=== PATIENT | male | born 1960 | race Caucasian/White ===

== ENCOUNTER → 2018-02-03 08:11 | Outpatient (CLI) | payer OTHER, SELFPAY ==
[2018-02-03 08:54] LABS: Add Manual Diff / Slide Review NO; Basophils Percent Auto 0.8 % (0-2); Eosinophils Percent Auto 2.6 % (2-4); Hemoglobin 15.7 g/dL (13.5-17.5); Lymphocytes Percent Auto 27.4 % (25-40); Mean Corpuscular HGB Conc 34.1 % (30-36); Mean Corpuscular Hemoglobin 30.1 PG (26-34); Mean Corpuscular Volume 88.2 fL (80-100); Monocytes Percent Auto 7.8 % (3-14); Neutrophils Absolute Auto 4400 /uL (3000-5900); Neutrophils Percent Auto 61.4 % (50-75); Platelet Count 185 X10^3/uL (150-400); Red Blood Cell Count 5.21 X10^6/uL (4.5-5.9); Red Cell Distribution Width 14.3 % (11.6-14.8); White Blood Cell Count 7.2 X10^3/uL (4.5-11.0)
[2018-02-03 09:20] LABS: Alanine Aminotransferase 46 IU/L (21-72); Albumin Globulin Ratio 1.4 (1.0-2.8); Alkaline Phosphatase 86 U/L (38-126); Aspartate Aminotransferase 30 IU/L (17-59); Bilirubin Total 0.6 mg/dL (0.2-1.3); Blood Urea Nitrogen 12 mg/dL (9-20); Carbon Dioxide 26 mmol/L (22-32); Chloride 104 mmol/L (98-107); Cholesterol 156 mg/dL (140-199); Estimated Glomerular Filt Rate > 60.0 mL/min (>60); Globulin 2.8 g/dL (1.7-4.1); Glucose 100 mg/dL (70-100); HDL Cholesterol 42 mg/dL (40-60); HEMOLYSIS < 15 (0-50); LDL Cholesterol Calculated 97 mg/dL (<100); Sodium 139 mmol/L (137-145); Total Protein 6.8 g/dL (6.3-8.2); Triglycerides 87 mg/dL (35-150)
[2018-02-03 09:47] LABS: Thyroid Stimulating Hormone 3.94 uIU/mL (0.47-4.68)
[2018-02-03 09:49] LABS: Prostate Specific Antigen 0.621 ng/mL (0.10-4.00)
== END ==
PROVIDERS: PCP Family Medicine; Visit Provider Family Medicine
DX: I10 Essential (primary) hypertension (principal); E78.2 Mixed hyperlipidemia; R97.20 Elevated prostate specific antigen [PSA]
CPT/HCPCS: 36415; 80053; 80061; 84153; 84443; 85025

== ENCOUNTER → 2018-02-23 16:27 | Outpatient (CLI) | payer OTHER, SELFPAY ==
--- NOTE | 2018-02-23 16:30 | DI.RAD.S_ITS ---
PROCEDURE: XR CHEST 2V INDICATIONS: pain TECHNIQUE: 2 views of the chest were acquired. COMPARISON: [facility], , CHEST 2 VIEW, 07/15/2009, 10:42. FINDINGS: Surgical changes and devices: None. Lungs and pleura: No pleural effusions or pneumothorax. Lung volumes are low and there is medial bibasilar patchy atelectatic opacities. Bronchovascular crowding. Mediastinum: Mediastinal contours are normal. Heart size is normal. Bones and chest wall: No suspicious bony abnormalities. Soft tissues appear unremarkable. IMPRESSION: Low lung volumes demonstrating medial bibasilar patchy opacities likely related to compressive atelectasis versus aspiration. Recommend clinical correlation. No acute consolidation. Dictated by: Kamlesh Stephenson [facility] Interpreted: Tray Vazquez MD on 02/23/2018 at 17:01 Approved by: Tray Vazquez M.D. on 02/23/2018 at 17:18
--- NOTE | 2018-02-23 16:30 | DI.RAD.S_ITS ---
PROCEDURE: XR CERVICAL SPINE 2V OR 3V INDICATIONS: pain TECHNIQUE: 4 view(s) of the cervical spine were acquired. COMPARISON: None. FINDINGS: Bones: No fractures or dislocations to the T1 level. The lateral masses of C1 appear intact on the odontoid view. No suspicious bony lesions. Minimal early disc degeneration. Soft tissues: No prevertebral soft tissue swelling. IMPRESSION: Endplate osteophytes indicate very early mild mid and lower cervical spine disc degeneration. Dictated by: Kamlesh Stephenson [facility] Interpreted: Tray Vazquez MD on 02/23/2018 at 17:00 Approved by: Tray Vazquez M.D. on 02/23/2018 at 17:17
== END ==
PROVIDERS: PCP Family Medicine; Visit Provider Family Medicine
DX: M54.2 Cervicalgia (principal); R07.9 Chest pain, unspecified
CPT/HCPCS: 71046; 72040

== ENCOUNTER → 2018-07-17 14:10 | Outpatient (CLI) | payer OTHER, SELFPAY ==
[2018-07-17 15:22] LABS: RBC Urine None Seen (0-5/HPF)
[2018-07-17 15:28] LABS: Appearance Urine UA CLEAR; Bilirubin Urine UA NEGATIVE (NEGATIVE); Color Urine UA YELLOW; Glucose Urine UA NEGATIVE (Negative); Ketones Urine UA NEGATIVE (NEGATIVE); Leukocyte Esterase Urine UA NEGATIVE (NEGATIVE); Nitrite Urine UA NEGATIVE (Negative); Occult Blood Urine UA NEGATIVE (Negative); Protein Urine UA NEGATIVE (Negative); Specific Gravity Urine UA >=1.030 (1.000-1.035); pH Urine UA 5.5 (4.5-8.0)
[2018-07-17 15:36] LABS: Bacteria Urine Few (2-10); Culture Indicated Urine Cult Not Indicated; Mucus Urine 1+ (Negative); Squamous Epithelial Cell Urine 0-1 /HPF; WBC Urine 0-1/HPF (0-5/HPF)
== END ==
PROVIDERS: PCP Family Medicine; Visit Provider Registered Nurse
DX: R39.89 Other symptoms and signs involving the genitourinary system (principal)
CPT/HCPCS: 81001

== ENCOUNTER → 2018-07-17 14:20 | Outpatient (CLI) | payer OTHER, SELFPAY ==
[2018-07-17 14:55] LABS: Hemoglobin A1C% w Est Avg Glu 5.9 % (4.0-6.0)
[2018-07-17 15:34] LABS: Prostate Specific Antigen Scrn 0.805 ng/mL (0.1-4.0)
== END ==
PROVIDERS: PCP Family Medicine; Visit Provider Registered Nurse
DX: R97.20 Elevated prostate specific antigen [PSA] (principal); R35.8 Other polyuria; Z12.5 Encounter for screening for malignant neoplasm of prostate
CPT/HCPCS: 36415; 81001; 83036; G0103

== ENCOUNTER → 2018-08-27 15:36 | Outpatient (CLI) | payer OTHER, SELFPAY ==
--- NOTE | 2018-08-27 15:38 | DI.RAD.S_ITS ---
PROCEDURE: XR LUMBAR SPINE 2-3V INDICATIONS: pain TECHNIQUE: 2 views of the lumbar spine were acquired. COMPARISON: None. FINDINGS: Bones: No fracture or focal osseous destruction. Scattered endplate spurring and sclerosis. Lumbar disc spaces are grossly preserved. There is diffuse facet arthropathy. Multilevel lower thoracic spondylosis also noted Soft tissues: Overlying bowel gas pattern is normal. No suspicious soft tissue calcifications. IMPRESSION: Diffuse lumbar facet arthropathy. Lower thoracic spondylosis. Dictated by: Tray Vazquez M.D. on 08/27/2018 at 16:49 Approved by: Tray Vazquez M.D. on 08/27/2018 at 16:51
== END ==
PROVIDERS: PCP Family Medicine; Visit Provider Family Medicine
DX: M54.5 Low back pain (principal); M47.816 Spondylosis without myelopathy or radiculopathy, lumbar region; M47.814 Spondylosis without myelopathy or radiculopathy, thoracic region
CPT/HCPCS: 72100

== ENCOUNTER → 2019-02-02 09:57 | Outpatient (CLI) | payer OTHER, SELFPAY ==
[2019-02-02 11:59] LABS: Add Manual Diff / Slide Review NO; Basophils Absolute Auto 0 /uL (0-100); Basophils Percent Auto 0.6 % (0-2); Eosinophils Absolute Auto 200 /uL (0-450); Eosinophils Percent Auto 2.4 % (2-4); Hematocrit 45.1 % (41-53); Hemoglobin 15.1 g/dL (13.5-17.5); Lymphocytes Absolute Auto 1900 /uL (1100-4500); Mean Corpuscular HGB Conc 33.4 % (30-36); Mean Corpuscular Hemoglobin 29.2 PG (26-34); Mean Corpuscular Volume 87.4 fL (80-100); Monocytes Absolute Auto 600 /uL (0-900); Monocytes Percent Auto 8.3 % (3-14); Neutrophils Absolute Auto 4100 /uL (1500-7000); Neutrophils Percent Auto 60.7 % (50-75); Platelet Count 180 X10^3/uL (150-400); Red Blood Cell Count 5.16 X10^6/uL (4.5-5.9); Red Cell Distribution Width 14.5 % (11.6-14.8); White Blood Cell Count 6.8 X10^3/uL (4.5-11.0)
[2019-02-02 12:12] LABS: Alanine Aminotransferase 36 IU/L (21-72); Albumin 3.9 g/dL (3.5-5.0); Albumin Globulin Ratio 1.3 (1.0-2.8); Alkaline Phosphatase 86 U/L (38-126); Aspartate Aminotransferase 26 IU/L (17-59); Bilirubin Total 0.5 mg/dL (0.2-1.3); Blood Urea Nitrogen 16 mg/dL (9-20); Calcium 8.9 mg/dL (8.4-10.2); Carbon Dioxide 26 mmol/L (22-32); Chloride 104 mmol/L (98-107); Cholesterol 153 mg/dL (140-199); Estimated Glomerular Filt Rate > 60.0 mL/min (>60); Globulin 2.9 g/dL (1.7-4.1); Glucose 94 mg/dL (70-100); HDL Cholesterol 39 mg/dL (40-60); HEMOLYSIS < 15 (0-50); LDL Cholesterol Calculated 90 mg/dL (<100); Potassium 4.1 mmol/L (3.4-5.1); Sodium 138 mmol/L (137-145); Total Protein 6.8 g/dL (6.3-8.2); Triglycerides 120 mg/dL (35-150)
[2019-02-02 12:42] LABS: Prostate Specific Antigen Scrn 0.604 ng/mL (0.1-4.0); Thyroid Stimulating Hormone 2.79 uIU/mL (0.47-4.68)
== END ==
PROVIDERS: PCP Family Medicine; Visit Provider Family Medicine
DX: I10 Essential (primary) hypertension (principal)
CPT/HCPCS: 36415; 80053; 80061; 84443; 85025; G0103

== ENCOUNTER → 2019-02-15 11:32 | Outpatient (CLI) | payer OTHER, SELFPAY ==
--- NOTE | 2019-02-15 11:33 | DI.MRI.S_ITS ---
PROCEDURE: MR CERVICAL SPINE WO CON INDICATIONS: Neck pain TECHNIQUE: This is a limited study, as the patient terminated the examination before it could be completed. The following imaging sequences were obtained: T1 sagittal, T2 axial, sagittal STIR, and sagittal T2 weighted. COMPARISON: [facility], CR, XR CERVICAL SPINE 2V OR 3V, 02/23/2018, 16:08. FINDINGS: Image quality: This examination is limited by involuntary motion artifact. Alignment and Curvature: There is straightening of the normal cervical lordosis. No focal AP alignment abnormality is seen. Bone Marrow: Marrow demonstrates normal overall signal. Spinal Cord: Visualized spinal cord has normal size and signal. No cerebellar tonsillar herniation. Paraspinous Soft Tissues: No paravertebral masses. Prevertebral soft tissues are normal in thickness. C2-C3: No significant abnormality is seen. C3-C4: The disc height is well-preserved. Loss of disc signal is seen at this level. A mild degree of generalized disc osteophyte complex is seen. Eltm-gm-wdazqgae facet hypertrophy is seen. Moderate bilateral neural foraminal narrowing is seen, left worse than right. No significant central canal narrowing is seen. C4-C5: The disc height is well-preserved. Loss of disc signal is seen at this level. Mild to moderate disc osteophyte complex is seen. Nxfx-su-lwhozezq right-sided and moderate left-sided facet hypertrophy is seen. There is moderate left-sided and mild right-sided neural foraminal narrowing seen. C5-C6: Mild loss of disc height is seen. Loss of disc signal is seen. Mild to moderate disc osteophyte complex is seen. Eenz-mu-zwxbkbyx facet hypertrophy is seen. Moderate bilateral neural foraminal narrowing is seen. Mild central canal narrowing is seen. C6-C7: The disc height and disc signal are relatively well-preserved. Mild to moderate disc osteophyte complex is seen. There is moderate right-sided and mild left-sided facet hypertrophy seen. Tsxe-zw-atcowbvz right-sided and mild left-sided neural foraminal narrowing can be seen. Mild central canal narrowing is seen. C7-T1: No significant abnormality is seen. IMPRESSION: Multiple levels of cervical spine degenerative change are seen, which are most prominent inferiorly. Straightening of the normal cervical lordosis is seen, which is commonly observed in patients with muscular spasm. Limited study, which was terminated early by the patient. Dictated by: Chacorta Gasca M.D. on 02/15/2019 at 14:57 Approved by: Chacorta Gasca M.D. on 02/15/2019 at 15:00
== END ==
PROVIDERS: PCP Family Medicine; Visit Provider Family Medicine
DX: M54.2 Cervicalgia (principal); M47.812 Spondylosis without myelopathy or radiculopathy, cervical region
CPT/HCPCS: 72141

== ENCOUNTER → 2019-03-14 12:33 | Outpatient (CLI) | payer OTHER, SELFPAY | PROVIDERS: PCP Family Medicine; Visit Provider Family Medicine | DX: M54.2 Cervicalgia (principal); I10 Essential (primary) hypertension | CPT/HCPCS: 95885; 95886; 95911 ==

== ENCOUNTER 2019-07-24 01:23 | Emergency (ER) | payer OTHER, SELFPAY ==
[2019-07-24 01:35] VITALS: BP 142/82; PULSE 74; RESP 20; TEMP 36.9; O2SAT 98
[2019-07-24 01:58] LABS: Add Manual Diff / Slide Review NO; Basophils Absolute Auto 100 /uL (0-100); Basophils Percent Auto 0.8 % (0-2); Eosinophils Absolute Auto 200 /uL (0-450); Eosinophils Percent Auto 2.2 % (2-4); Hematocrit 45.8 % (41-53); Hemoglobin 15.5 g/dL (13.5-17.5); Lymphocytes Absolute Auto 2300 /uL (1100-4500); Lymphocytes Percent Auto 23.3 % (25-40); Mean Corpuscular HGB Conc 33.8 % (30-36); Mean Corpuscular Hemoglobin 29.3 PG (26-34); Mean Corpuscular Volume 86.9 fL (80-100); Monocytes Absolute Auto 700 /uL (0-900); Monocytes Percent Auto 7.6 % (3-14); Neutrophils Absolute Auto 6500 /uL (1500-7000); Neutrophils Percent Auto 66.1 % (50-75); Platelet Count 179 X10^3/uL (150-400); Red Blood Cell Count 5.27 X10^6/uL (4.5-5.9); Red Cell Distribution Width 14.3 % (11.6-14.8); White Blood Cell Count 9.8 X10^3/uL (4.5-11.0)
[2019-07-24 02:05] LABS: Alanine Aminotransferase 32 IU/L (<50); Albumin 4.1 g/dL (3.5-5.0); Albumin Globulin Ratio 1.4 (1.0-2.8); Alkaline Phosphatase 90 U/L (38-126); Aspartate Aminotransferase 24 IU/L (17-59); BUN Creatinine Ratio 21.1 (6-22); Bilirubin Total 0.5 mg/dL (0.2-1.3); Blood Urea Nitrogen 19 mg/dL (9-20); Carbon Dioxide 30 mmol/L (22-32); Chloride 100 mmol/L (98-107); Estimated Glomerular Filt Rate > 60.0 mL/min (>60); Glucose 106 mg/dL (70-100); HEMOLYSIS < 15 (0-50); Potassium 4.5 mmol/L (3.4-5.1); Sodium 135 mmol/L (137-145); Total Protein 7.1 g/dL (6.3-8.2)
[2019-07-24 02:16] LABS: Troponin I < 0.012 ng/mL (0.01-0.034)
--- NOTE | 2019-07-24 02:31 | ED_ITS ---
HPI - General Adult General Chief complaint: Hypertension Stated complaint: bp high dizziness fatigue left ear neck pressure Time Seen by Provider: 07/24/19 02:31 Source: patient Mode of arrival: Ambulatory Limitations: no limitations History of Present Illness HPI narrative: The patient has hypertension. He takes lisinopril and hydrochlorothiazide. He also has sleep apnea, he uses CPAP. He has had episodes of dizziness the last couple days. He has had no visual changes or chest pain. He checked his blood pressure night prior to arrival, his systolic blood pressure was 180. Symptoms have resolved since arrival. He has had recent nasal congestion. He did not use his CPAP unit last night. He has no ass ociated sore throat, cough or difficulty breathing. He has no chest discomfort. He has no GI symptoms. After arrival here, symptoms have improved. His systolic blood pressure is 130s. He is not diabetic, he has no history of cardiac or respiratory disease. He is a nonsmoker. Related Data Home Medications Medication Instructions Recorded Confirmed fexofenadine 180 mg tablet 180 mg PO DAILY 07/17/18 07/10/19 [employer] Dreamstation CPAP #1 ea 12/06/18 07/10/19 Previous Rx's Medication Instructions Recorded potassium chloride [K-Tab] 20 meq PO QDAYP PRN #30 tab 07/20/17 furosemide 40 mg tablet 40 mg PO QDAY PRN #30 tab 02/23/18 lisinopril 20 mg tablet 20 mg PO QDAY #90 tab 03/25/19 celecoxib 200 mg capsule 200 mg PO DAILY #30 cap MDD 200 mg 04/15/19 simvastatin 20 mg tablet 20 mg PO HS #90 tab 05/09/19 Allergies Allergy/AdvReac Type Severity Reaction Status Date / Time No Known Allergies Allergy Uncoded 04/15/19 16:14 Review of Systems Review of Systems ROS Unobtainable: All systems reviewed & are unremarkable except as noted in HPI and below Constitutional Constitutional: Denies chills, Denies fever(s), Denies lethargy and Denies weakness Eyes Eyes: Denies change in vision and Denies loss of vision ENT Ears, Nose, Mouth, and Throat: Denies hoarseness, Reports nasal discharge, Denies neck pain and Denies sore throat Cardiovascular Cardiovascular: Denies chest pain, Denies irregular heart rhythm, Denies lightheadedness, Denies palpitations and Denies orthopnea Respiratory Respiratory: Denies chest congestion, Denies cough, Denies hemoptysis and Denies wheezing Gastrointestinal Gastrointestinal: Denies abdominal pain, Denies diarrhea, Denies nausea and Denies vomiting Musculoskeletal Musculoskeletal: Denies back pain and Denies neck pain Integumentary/Breasts Skin/Breast: Denies pruritus, Denies erythema, Denies rash and Denies wounds Neurologic Neurologic: Denies confusion, Denies loss of vision and Denies weakness Psychiatric Psychiatric: Denies anxiety, Denies confusion and Denies depression Endocrine Endocrine: Denies palpitations Allergic/Immunologic Allergic/Immunologic: Denies wheezing Patient History Medical History Ankle pain (Chronic ~2013) Cervicalgia (Chronic) Chicken pox (Resolved) Facet arthropathy, cervical (Chronic) Foraminal stenosis of cervical region (Chronic) Headache (Chronic ~1991) Hearing loss (Chronic ~1991) Hypertension (Chronic ~2009) Insomnia (Chronic) Measles (Resolved) Morbid obesity with body mass index of 40.0-49.9 (Chronic) Mumps (Resolved) Sleep apnea (Chronic ~2011) Snoring (Inactive) Vision disorder (Chronic) Surgical History Anesthesia (Resolved) Status post appendectomy Family History Father No problems noted. Social History Smoking Status: Never smoker alcohol intake: current (occasionally) substance use type: does not use Smoking Status: Never smoker Exam Initial Vital Signs Initial Vital Signs: Vital Signs Temperature 98.5 F 07/24/19 01:35 Pulse Rate 74 07/24/19 01:35 Respiratory Rate 20 07/24/19 01:35 Blood Pressure 142/82 H 07/24/19 01:35 Pulse Oximetry 98 07/24/19 01:35 Const General: cooperative and well developed Nutritional Appearance: well nourished [facility] Head: normocephalic and atraumatic Nose: nasal discharge Face and sinus: sinuses nontender and No dry mucous membranes Mouth: oral mucosae normal and moist mucous membranes Teeth and gingiva: dentition normal Throat: tonsils normal and uvula midline Eyes General: appearance normal, both eyes and all related structures Eyelids: eyelids normal Conjunctivae: conjunctivae normal Sclera: sclerae normal Pupils: PERRL EOM: EOM intact bilaterally Neck Neck: No JVD Resp Effort & Inspection: normal respiratory effort and able to speak in complete sentences Auscultation: clear to auscultation bilaterally, no rales, no rhonchi and no wheezes Cardio Rate: regular rate Rhythm: regular rhythm Heart Sounds: S1 normal, S2 normal, no click, no gallops, no murmurs and no rubs Pulses: normal peripheral pulses GI Inspection: obesity Palpation: soft, no hepatosplenomegaly and No tender Auscultation: normal bowel sounds Back/Spine/Pelvis Back: normal to inspection Skin General: no rashes or lesions noted Neuro General: alert, awake, oriented x3 and no focal motor deficits Extrem Other: 3+ bilateral lower extremity edema. Course Course Course Narrative: The patient's blood pressures been 130s systolic since arrival. He has no chest pain or dyspnea. The dizziness has resolved. His evaluation is benign here in the ER. Orders Ordered: ED Orders 07/24/19 01:37 EKG-12 Lead Stat 07/24/19 01:48 Complete Blood Count AUTO DIFF Stat Comprehensive Metabolic Panel Stat Troponin I Stat Vital Signs Vital signs: Vital Signs - 8 hr 07/24/19 01:35 07/24/19 02:46 07/24/19 03:52 Temperature 98.5 F Pulse Rate 74 67 18 L Respiratory Rate 20 10 L 14 Blood Pressure 142/82 H Blood Pressure [Left Arm] 141/80 H 132/79 Pulse Oximetry 98 98 98 Medical Decision Making Lab Data Result diagrams: 07/24/19 01:48 07/24/19 01:48 Labs: Lab Results 07/24/19 07/24/19 Range/Units 01:48 01:48 WBC 9.8 (4.5-11.0) X10^3/uL RBC 5.27 (4.5-5.9) X10^6/uL Hgb 15.5 (13.5-17.5) g/dL Hct 45.8 (41-53) % MCV 86.9 (80-100) fL MCH 29.3 (26-34) PG MCHC 33.8 (30-36) % RDW 14.3 (11.6-14.8) % Plt Count 179 (150-400) X10^3/uL Neut % (Auto) 66.1 (50-75) % Lymph % (Auto) 23.3 L (25-40) % [place] % (Auto) 7.6 (3-14) % Eos % (Auto) 2.2 (2-4) % Baso % (Auto) 0.8 (0-2) % Neut # (Auto) 6500 (4461-8261) /uL Lymph # (Auto) 2300 (3818-9991) /uL [place] # (Auto) 700 (0-900) /uL Eos # (Auto) 200 (0-450) /uL Baso # (Auto) 100 (0-100) /uL Sodium 135 L (137-145) mmol/L Potassium 4.5 (3.4-5.1) mmol/L Chloride 100 (98-107) mmol/L Carbon Dioxide 30 (22-32) mmol/L BUN 19 (9-20) mg/dL Creatinine 0.90 (0.66-1.25) mg/dL Estimated GFR > 60.0 (>60) mL/min BUN/Creatinine Ratio 21.1 (6-22) Glucose 106 H (70-100) mg/dL Calcium 9.0 (8.4-10.2) mg/dL Total Bilirubin 0.5 (0.2-1.3) mg/dL AST 24 (17-59) IU/L ALT 32 (<50) IU/L Alkaline Phosphatase 90 (38-126) U/L Troponin I < 0.012 (0.01-0.034) ng/mL Total Protein 7.1 (6.3-8.2) g/dL Albumin 4.1 (3.5-5.0) g/dL Globulin 3.0 (1.7-4.1) g/dL Albumin/Globulin Ratio 1.4 (1.0-2.8) Imaging Data Chest x-ray: My Impression: Normal ECG Data Attestation: I personally reviewed and interpreted this ECG as follows: (Normal sinus rhythm, rate 73 beats per minute. Normal intervals. No ectopy. No acute ST T wave changes.) Discharge Plan Departure Patient Disposition: Home Clinical Impression: Hypertension Qualifiers: Hypertension type: essential hypertension Qualified Code(s): I10 - Essential (primary) hypertension Instructions: DI for High Blood Pressure Activity Restrictions/Additional Instructions: Continue your current blood pressure medications. Keep a daily record of your blood pressure readings. Try to be sure you use your CPAP every time you lay down. Follow-up with your doctor about your blood pressure monitoring. Return the ER if he develops chest pain, difficulty breathing, headache, confusion, dizziness or visual changes associated with high blood pressure. Prescriptions: No Action potassium chloride [K-Tab] 20 MEQ tablet extended release 20 meq PO QDAYP PRNQty: 30 RF: 0 lisinopril 20 mg tablet 20 mg PO QDAY Qty: 90 RF: 3 simvastatin 20 mg tablet 20 mg PO HS Qty: 90 RF: 3 furosemide 40 mg tablet 40 mg PO QDAY PRN (Reason: edema) Qty: 30 RF: 11 fexofenadine [Estefani Allergy] 180 mg tablet 180 mg PO DAILY RF: 0 celecoxib [Celebrex] 200 mg capsule 200 mg PO DAILY MDD 200 mg Qty: 30 RF: 5 (DME) [employer] Dreamstation CPAP Qty: 1 RF: 0 Referrals: Deuce Collins MD [Primary Care Provider] -
[2019-07-24 02:46] VITALS: BP 141/80; PULSE 67; RESP 10; O2SAT 98
[2019-07-24 03:52] VITALS: BP 132/79; PULSE 18; RESP 14; O2SAT 98
== END 2019-07-24 04:02 | disposition home or self-care (01) ==
PROVIDERS: Emergency Provider Emergency Medicine; PCP Family Medicine
DX: I10 Essential (primary) hypertension (principal)
CPT/HCPCS: 36415; 80053; 84484; 85025; 93005; 99283; 99284

== ENCOUNTER → 2020-01-02 07:08 | Outpatient (CLI) | payer OTHER, SELFPAY | PROVIDERS: PCP Family Medicine; Referring Provider Family Medicine; Visit Provider Family Medicine | DX: M54.5 Low back pain (principal); Z53.20 Procedure and treatment not carried out because of patient's decision for unspecified reasons ==

== ENCOUNTER 2020-03-17 13:54 | Emergency (ER) | payer OTHER, SELFPAY ==
[2020-03-17 14:00] VITALS: BP 141/77; PULSE 82; RESP 18; TEMP 36.7; O2SAT 96
--- NOTE | 2020-03-17 14:17 | ED.MALEGU ---
HPI - Male Genitourinary <LINDSEY Escobar - Last Filed: 03/17/20 21:07> General Chief complaint: Urogenital-Male Stated complaint: Urinating blood Time Seen by Provider: 03/17/20 13:57 Source: patient Mode of arrival: Ambulatory Limitations: no limitations History of Present Illness HPI Narrative: 60yo male with a history of high cholesterol, hypertension, and obesity, presents to the ED complaining of 1 episode of gross hematuria today. Patient states he urinated this morning and noticed later when he had a bowel movement he had a blood stain in his underwear. He then went to urinate and noticed significant bright red blood in urine. Patient states occasionally he has some burning post urination. Denies any prostate problems. Denies any pain at this time, no abdominal pain, no fevers, chills, nausea, vomiting, diarrhea, or any other concerns. Denies taking blood thinners. Related Data Home Medications Medication Instructions Recorded Confirmed RespirCheck-Caps Dreamstation CPAP #1 ea 12/06/18 01/14/20 cyclosporine 0.05 % eye drops in a EYE-BOTH .QD each 12/02/19 01/14/20 dropperette Previous Rx's Medication Instructions Recorded celecoxib 200 mg capsule 200 mg PO DAILY #30 cap MDD 200 mg 08/09/19 fexofenadine 180 mg tablet 180 mg PO DAILY #90 tab 08/12/19 lisinopril 20 mg tablet 20 mg PO BID #180 tab 08/12/19 potassium chloride 20 mEq 20 meq PO QDAYP PRN #30 tab 08/12/19 tablet,extended release simvastatin 20 mg tablet 20 mg PO HS #90 tab 08/12/19 furosemide 40 mg tablet 40 mg PO QDAY PRN #90 tab 11/01/19 meloxicam 15 mg tablet 15 mg PO DAILY #60 tab 12/02/19 hydrocodone 5 mg-acetaminophen 325 1 tab PO Q6H PRN #30 tab 12/18/19 mg tablet Allergies Allergy/AdvReac Type Severity Reaction Status Date / Time No Known Drug Allergies Allergy Verified 03/17/20 14:09 Review of Systems <LINDSEY Escobar - Last Filed: 03/17/20 21:07> Review of Systems Narrative: REVIEW OF SYSTEMS: GENERAL: Denies fever, chills, malaise, or wt. loss. HENT: No head trauma, sore throat, or dysphagia. EYES: No loss of vision, double vision, eye pain, or irritation. CARDIOVASCULAR: No chest pain, palpitations, or orthopnea. RESPIRATORY: No shortness of breath or cough. GASTROINTESTINAL: Denies abdominal pain. GENITOURINARY: No flank pain. Reports hematuria, see HPI. MUSCULOSKELETAL: No pain, weakness, or trauma. INTEGUMENTARY: No rash, lesions, or pruritus. NEURO: No numbness, tingling, memory loss, confusion, or headaches. PSYCH: No behavior or mood changes. Patient History <LINDSEY Escobar - Last Filed: 03/17/20 21:07> Medical History Ankle pain (Chronic ~2013) Cervicalgia (Chronic) Chicken pox (Resolved) Facet arthropathy, cervical (Chronic) Foraminal stenosis of cervical region (Chronic) Headache (Chronic ~1991) Hearing loss (Chronic ~1991) Hypertension (Chronic ~2009) Insomnia (Chronic) Measles (Resolved) Morbid obesity with body mass index of 40.0-49.9 (Chronic) Mumps (Resolved) Sleep apnea (Chronic ~2011) Snoring (Inactive) Vision disorder (Chronic) Surgical History Anesthesia (Resolved) Status post appendectomy Family History Father No problems noted. Social History Smoking Status: Never smoker alcohol intake: current (occasionally) substance use type: does not use Smoking Status: Never smoker alcohol intake frequency: 0-2 drinks per day Substance Use Type: does not use Exam <LINDSEY Escobar - Last Filed: 03/17/20 21:07> Initial Vital Signs Initial Vital Signs: Vital Signs Temperature 98.1 F 03/17/20 14:00 Pulse Rate 82 03/17/20 14:00 Respiratory Rate 18 03/17/20 14:00 Blood Pressure 141/77 H 03/17/20 14:00 Pulse Oximetry 96 03/17/20 14:00 PHYSICAL EXAMINATION: GENERAL: Well groomed, alert, and cooperative. Answers questions promptly and appropriately. Vital signs noted. HENT: Normocephalic, atraumatic. Hearing intact. Oral mucosa is pink and moist. EYES: Conjunctiva pink, sclera white, no periorbital swelling. CARDIOVASCULAR: S1 and S2 sounds normal. Regular rate and rhythm, no murmurs, clicks, or bruits. No pedal edema. RESPIRATORY: Normal respiratory rate, trachea midline, airway patent. No stridor, nasal flaring or accessory muscle use. Lungs are clear in all gruber without wheeze, rhonchi, or crackles. GASTROINTESTINAL: Bowel sounds normoactive. Abdomen is soft and non-tender. No organomegaly, no palpable masses. GENITALURINARY: No flank tenderness. MUSCULOSKELETAL: Normal gait and coordination. Equal tone and mass bilaterally. EXTREMITIES: CMS intact, no pedal edema. SKIN: Warm, dry, soft, appropriate color for ethnicity. No lesions, rashes, or wounds to visualized areas. NEURO: Alert and Oriented X 3. Good coordination. No ataxia, or sensory deficits, or cognitive issues. PSYCH: Appropriate affect and mood. <Arnoldo David MD - Last Filed: 04/14/20 03:09> Initial Vital Signs Initial Vital Signs: Vital Signs Temperature 98.1 F 03/17/20 14:00 Pulse Rate 82 03/17/20 14:00 Respiratory Rate 18 03/17/20 14:00 Blood Pressure 141/77 H 03/17/20 14:00 Pulse Oximetry 96 03/17/20 14:00 Course <LINDSEY Escobar - Last Filed: 03/17/20 21:07> Orders Ordered: ED Orders 03/17/20 14:20 Urine Culture Stat Urine Microscopic Stat 03/17/20 14:30 Complete Blood Count AUTO DIFF Stat Comprehensive Metabolic Panel Stat Partial Thromboplastin Time Stat Prothrombin Time INR Stat Reevaluation(s) Reevaluation #1: Discussed test, test results, and plan of care with Dr. David. Vital Signs Vital signs: Vital Signs - 8 hr 03/17/20 14:00 Temperature 98.1 F Pulse Rate 82 Respiratory Rate 18 Blood Pressure 141/77 H Pulse Oximetry 96 <Arnoldo David MD - Last Filed: 04/14/20 03:09> Orders Ordered: ED Orders 03/17/20 14:20 Urine Culture Stat Urine Microscopic Stat 03/17/20 14:30 Complete Blood Count AUTO DIFF Stat Comprehensive Metabolic Panel Stat Partial Thromboplastin Time Stat Prothrombin Time INR Stat Vital Signs Vital signs: Vital Signs - 8 hr 03/17/20 14:00 Temperature 98.1 F Pulse Rate 82 Respiratory Rate 18 Blood Pressure 141/77 H Pulse Oximetry 96 MDM - Male Genitourinary <LINDSEY Escobar - Last Filed: 03/17/20 21:07> Medical Records Attestation: I reviewed the patient's medical records. Lab Data Attestation: I reviewed the patient's lab results. Result diagrams: 03/17/20 14:30 03/17/20 14:30 Labs: Lab Results 03/17/20 03/17/20 03/17/20 Range/Units 14:20 14:30 14:30 WBC 8.5 (4.5-11.0) X10^3/uL RBC 5.14 (4.5-5.9) X10^6/uL Hgb 15.3 (13.5-17.5) g/dL Hct 45.6 (41-53) % MCV 88.7 (80-100) fL MCH 29.7 (26-34) PG MCHC 33.5 (30-36) % RDW 14.1 (11.6-14.8) % Plt Count 206 (150-400) X10^3/uL Neut % (Auto) 61.6 (50-75) % Lymph % (Auto) 25.8 (25-40) % [place] % (Auto) 8.6 (3-14) % Eos % (Auto) 3.1 (2-4) % Baso % (Auto) 0.9 (0-2) % Neut # (Auto) 5200 (6659-0334) /uL Lymph # (Auto) 2200 (1075-1643) /uL [place] # (Auto) 700 (0-900) /uL Eos # (Auto) 300 (0-450) /uL Baso # (Auto) 100 (0-100) /uL PT 11.9 (10.1-12.7) SECONDS INR 1.0 (0.9-1.3) APTT 39 H (26.4-36.2) SECONDS Sodium (137-145) mmol/L Potassium (3.4-5.1) mmol/L Chloride (98-107) mmol/L Carbon Dioxide (22-32) mmol/L BUN (9-20) mg/dL Creatinine (0.66-1.25) mg/dL Estimated GFR (>60) mL/min BUN/Creatinine Ratio (6-22) Glucose (70-100) mg/dL Calcium (8.4-10.2) mg/dL Total Bilirubin (0.2-1.3) mg/dL AST (17-59) IU/L ALT (<50) IU/L Alkaline Phosphatase (38-126) U/L Total Protein (6.3-8.2) g/dL Albumin (3.5-5.0) g/dL Globulin (1.7-4.1) g/dL Albumin/Globulin Ratio (1.0-2.8) Urine RBC 30-100/hpf H (0-5/HPF) Urine WBC 1-5/hpf (0-5/HPF) Ur Squamous Epith Cells 0-1 /hpf (0-5/HPF) Amorphous Sediment 1+ Urine Bacteria Occasional (0-1) (None) Ur Culture Indicated? Specimen cultured 03/17/20 Range/Units 14:30 WBC (4.5-11.0) X10^3/uL RBC (4.5-5.9) X10^6/uL Hgb (13.5-17.5) g/dL Hct (41-53) % MCV (80-100) fL MCH (26-34) PG MCHC (30-36) % RDW (11.6-14.8) % Plt Count (150-400) X10^3/uL Neut % (Auto) (50-75) % Lymph % (Auto) (25-40) % [place] % (Auto) (3-14) % Eos % (Auto) (2-4) % Baso % (Auto) (0-2) % Neut # (Auto) (9638-4012) /uL Lymph # (Auto) (8533-2956) /uL [place] # (Auto) (0-900) /uL Eos # (Auto) (0-450) /uL Baso # (Auto) (0-100) /uL PT (10.1-12.7) SECONDS INR (0.9-1.3) APTT (26.4-36.2) SECONDS Sodium 137 (137-145) mmol/L Potassium 4.0 (3.4-5.1) mmol/L Chloride 102 (98-107) mmol/L Carbon Dioxide 29 (22-32) mmol/L BUN 15 (9-20) mg/dL Creatinine 0.91 (0.66-1.25) mg/dL Estimated GFR > 60.0 (>60) mL/min BUN/Creatinine Ratio 16.5 (6-22) Glucose 102 H (70-100) mg/dL Calcium 8.7 (8.4-10.2) mg/dL Total Bilirubin 0.5 (0.2-1.3) mg/dL AST 32 (17-59) IU/L ALT 33 (<50) IU/L Alkaline Phosphatase 89 (38-126) U/L Total Protein 7.0 (6.3-8.2) g/dL Albumin 4.2 (3.5-5.0) g/dL Globulin 2.8 (1.7-4.1) g/dL Albumin/Globulin Ratio 1.5 (1.0-2.8) Urine RBC (0-5/HPF) Urine WBC (0-5/HPF) Ur Squamous Epith Cells (0-5/HPF) Amorphous Sediment Urine Bacteria (None) Ur Culture Indicated? Urine Dip Bedside Urine Glucose Negative Bedside Urine Bilirubin - Negative Bedside Urine Ketone - Negative Urine Specific [place] 1.020 Bedside Urine Occult Blood +++ Bedside Urine pH 5.5 Bedside Urine Protein - Negative Bedside Urine Urobilinogen - Negative Bedside Urine Nitrite - Negative Bedside Urine Leukocytes +/- 15 Esterase MDM Narrative Medical decision making narrative: History and examination reveals 60-year-old male with an episode of gross hematuria, microcytic hematuria seen on urinalysis. No signs of acute kidney injury, no difficulty with urination or bladder retention. No concerns for clotting disorder. Abdominal assessment benign, no imaging indicated at this time. No signs of infection in urine, afebrile, non tachycardic. Patient was referred to Urology for follow-up. Return precautions given for new or worsening symptoms. Patient agreed to plan of care verbalized understanding. <Arnoldo David MD - Last Filed: 04/14/20 03:09> Lab Data Labs: Lab Results 03/17/20 03/17/20 03/17/20 Range/Units 14:20 14:30 14:30 WBC 8.5 (4.5-11.0) X10^3/uL RBC 5.14 (4.5-5.9) X10^6/uL Hgb 15.3 (13.5-17.5) g/dL Hct 45.6 (41-53) % MCV 88.7 (80-100) fL MCH 29.7 (26-34) PG MCHC 33.5 (30-36) % RDW 14.1 (11.6-14.8) % Plt Count 206 (150-400) X10^3/uL Neut % (Auto) 61.6 (50-75) % Lymph % (Auto) 25.8 (25-40) % [place] % (Auto) 8.6 (3-14) % Eos % (Auto) 3.1 (2-4) % Baso % (Auto) 0.9 (0-2) % Neut # (Auto) 5200 (3720-9776) /uL Lymph # (Auto) 2200 (4850-1048) /uL [place] # (Auto) 700 (0-900) /uL Eos # (Auto) 300 (0-450) /uL Baso # (Auto) 100 (0-100) /uL PT 11.9 (10.1-12.7) SECONDS INR 1.0 (0.9-1.3) APTT 39 H (26.4-36.2) SECONDS Sodium (137-145) mmol/L Potassium (3.4-5.1) mmol/L Chloride (98-107) mmol/L Carbon Dioxide (22-32) mmol/L BUN (9-20) mg/dL Creatinine (0.66-1.25) mg/dL Estimated GFR (>60) mL/min BUN/Creatinine Ratio (6-22) Glucose (70-100) mg/dL Calcium (8.4-10.2) mg/dL Total Bilirubin (0.2-1.3) mg/dL AST (17-59) IU/L ALT (<50) IU/L Alkaline Phosphatase (38-126) U/L Total Protein (6.3-8.2) g/dL Albumin (3.5-5.0) g/dL Globulin (1.7-4.1) g/dL Albumin/Globulin Ratio (1.0-2.8) Urine RBC 30-100/hpf H (0-5/HPF) Urine WBC 1-5/hpf (0-5/HPF) Ur Squamous Epith Cells 0-1 /hpf (0-5/HPF) Amorphous Sediment 1+ Urine Bacteria Occasional (0-1) (None) Ur Culture Indicated? Specimen cultured 03/17/20 Range/Units 14:30 WBC (4.5-11.0) X10^3/uL RBC (4.5-5.9) X10^6/uL Hgb (13.5-17.5) g/dL Hct (41-53) % MCV (80-100) fL MCH (26-34) PG MCHC (30-36) % RDW (11.6-14.8) % Plt Count (150-400) X10^3/uL Neut % (Auto) (50-75) % Lymph % (Auto) (25-40) % [place] % (Auto) (3-14) % Eos % (Auto) (2-4) % Baso % (Auto) (0-2) % Neut # (Auto) (0881-1505) /uL Lymph # (Auto) (2981-2557) /uL [place] # (Auto) (0-900) /uL Eos # (Auto) (0-450) /uL Baso # (Auto) (0-100) /uL PT (10.1-12.7) SECONDS INR (0.9-1.3) APTT (26.4-36.2) SECONDS Sodium 137 (137-145) mmol/L Potassium 4.0 (3.4-5.1) mmol/L Chloride 102 (98-107) mmol/L Carbon Dioxide 29 (22-32) mmol/L BUN 15 (9-20) mg/dL Creatinine 0.91 (0.66-1.25) mg/dL Estimated GFR > 60.0 (>60) mL/min BUN/Creatinine Ratio 16.5 (6-22) Glucose 102 H (70-100) mg/dL Calcium 8.7 (8.4-10.2) mg/dL Total Bilirubin 0.5 (0.2-1.3) mg/dL AST 32 (17-59) IU/L ALT 33 (<50) IU/L Alkaline Phosphatase 89 (38-126) U/L Total Protein 7.0 (6.3-8.2) g/dL Albumin 4.2 (3.5-5.0) g/dL Globulin 2.8 (1.7-4.1) g/dL Albumin/Globulin Ratio 1.5 (1.0-2.8) Urine RBC (0-5/HPF) Urine WBC (0-5/HPF) Ur Squamous Epith Cells (0-5/HPF) Amorphous Sediment Urine Bacteria (None) Ur Culture Indicated? Urine Dip Bedside Urine Glucose Negative Bedside Urine Bilirubin - Negative Bedside Urine Ketone - Negative Urine Specific [place] 1.020 Bedside Urine Occult Blood +++ Bedside Urine pH 5.5 Bedside Urine Protein - Negative Bedside Urine Urobilinogen - Negative Bedside Urine Nitrite - Negative Bedside Urine Leukocytes +/- 15 Esterase Discharge Plan Departure Patient Disposition: Home Clinical Impression: Hematuria Discharge Date/Time: 03/17/20 15:40 Instructions: DI for Hematuria Activity Restrictions/Additional Instructions: Thank you for entrusting me with your care today. As discussed, your urinalysis shows blood in your urine. Your laboratory work is non-remarkable, your kidney function and red blood cell count is normal. I have referred you for a follow-up with urology for further testing and evaluation. Please call them today or tomorrow to schedule an appointment. Return emergency department for any new or worsening symptoms such as severe pain, dizziness, syncope, high fevers, inability to urinate, uncontrollable bleeding, or any other concerns. Prescriptions: No Action fexofenadine [Estefani Allergy] 180 mg tablet 180 mg PO DAILY Qty: 90 RF: 3 lisinopril 20 mg tablet 20 mg PO BID Qty: 180 RF: 3 potassium chloride [K-Tab] 20 mEq tablet extended release 20 meq PO QDAYP PRN (Reason: edema) Qty: 30 RF: 5 simvastatin 20 mg tablet 20 mg PO HS Qty: 90 RF: 3 furosemide 40 mg tablet 40 mg PO QDAY PRN (Reason: edema) Qty: 90 RF: 1 Restasis 0.05 % dropperette EYE-BOTH .QD RF: 0 meloxicam 15 mg tablet 15 mg PO DAILY Qty: 60 RF: 5 celecoxib [Celebrex] 200 mg capsule 200 mg PO DAILY MDD 200 mg Qty: 30 RF: 5 Hold Instructions: Home Medication placed on hold at Doctor's office hydrocodone-acetaminophen 5-325 mg tablet 1 tab PO Q6H PRN (Reason: pain) Qty: 30 RF: 0 (DME) Respironics Dreamstation CPAP Qty: 1 RF: 0 Referrals: Deuce Collins MD [Primary Care Provider] - Dina Del Toro MD [Physician] - (Hematuria )
[2020-03-17 14:38] LABS: Add Manual Diff / Slide Review NO; Basophils Absolute Auto 100 /uL (0-100); Basophils Percent Auto 0.9 % (0-2); Eosinophils Absolute Auto 300 /uL (0-450); Eosinophils Percent Auto 3.1 % (2-4); Hematocrit 45.6 % (41-53); Hemoglobin 15.3 g/dL (13.5-17.5); Lymphocytes Absolute Auto 2200 /uL (1100-4500); Lymphocytes Percent Auto 25.8 % (25-40); Mean Corpuscular HGB Conc 33.5 % (30-36); Mean Corpuscular Hemoglobin 29.7 PG (26-34); Mean Corpuscular Volume 88.7 fL (80-100); Monocytes Absolute Auto 700 /uL (0-900); Monocytes Percent Auto 8.6 % (3-14); Neutrophils Absolute Auto 5200 /uL (1500-7000); Neutrophils Percent Auto 61.6 % (50-75); Platelet Count 206 X10^3/uL (150-400); Red Blood Cell Count 5.14 X10^6/uL (4.5-5.9); Red Cell Distribution Width 14.1 % (11.6-14.8); White Blood Cell Count 8.5 X10^3/uL (4.5-11.0)
[2020-03-17 14:43] LABS: Amorphous Sediment Urine 1+; RBC Urine 30-100/HPF (0-5/HPF); Squamous Epithelial Cell Urine 0-1 /HPF (0-5/HPF); WBC Urine 1-5/HPF (0-5/HPF)
[2020-03-17 14:44] LABS: Bacteria Urine Occasional (0-1); Culture Indicated Urine Specimen Cultured
[2020-03-17 14:45] LABS: Prothrombin Time 11.9 SECONDS (10.1-12.7)
[2020-03-17 14:47] LABS: PTT Partial Thromboplastin Tim 39 SECONDS (26.4-36.2)
--- NOTE | 2020-03-17 14:49 | PC.NURSE ---
Patient states he noticed blood in underwear when he went to urinated, then produced fair amount of blood in urine. Patient reports small amount of left flank pain. Has known buldging disc. Patient states he felt like something was blocked earlier when he started urinating but once flow started he felt a relief.
[2020-03-17 14:50] LABS: Alanine Aminotransferase 33 IU/L (<50); Albumin 4.2 g/dL (3.5-5.0); Albumin Globulin Ratio 1.5 (1.0-2.8); Alkaline Phosphatase 89 U/L (38-126); Aspartate Aminotransferase 32 IU/L (17-59); BUN Creatinine Ratio 16.5 (6-22); Bilirubin Total 0.5 mg/dL (0.2-1.3); Blood Urea Nitrogen 15 mg/dL (9-20); Calcium 8.7 mg/dL (8.4-10.2); Carbon Dioxide 29 mmol/L (22-32); Chloride 102 mmol/L (98-107); Estimated Glomerular Filt Rate > 60.0 mL/min (>60); Globulin 2.8 g/dL (1.7-4.1); Glucose 102 mg/dL (70-100); HEMOLYSIS < 15 (0-50); Sodium 137 mmol/L (137-145)
== END 2020-03-17 15:40 | disposition home or self-care (01) ==
PROVIDERS: Emergency Provider Nurse Practitioner; PCP Family Medicine
DX: R31.0 Gross hematuria (principal)
CPT/HCPCS: 36415; 51798; 80053; 81003; 81015; 85025; 85610; 85730; 87077; 87086; 87147; 99283

== ENCOUNTER → 2020-03-27 11:05 | Outpatient (CLI) | payer OTHER, SELFPAY ==
--- NOTE | 2020-03-27 11:06 | DI.CT.S_ITS ---
PROCEDURE: CT ABDOMEN PELVIS WO/W CON INDICATIONS: hematuria TECHNIQUE: Optional 5 mm thick noncontrast images acquired from the diaphragm to the symphysis pubis. After the administration of intravenous contrast, 5 mm thick images acquired from the diaphragm to the symphysis pubis after a 10-minute delay. 2 mm thick coronal and sagittal reformats were then performed of the kidneys and ureters. For radiation dose reduction, the following was used: automated exposure control, adjustment of mA and/or kV according to patient size. COMPARISON: None. FINDINGS: Image quality: Excellent. Lung bases: Lung bases are clear. Heart size is normal. Urinary system: Both kidneys are normal in size, without hydronephrosis or nephrolithiasis on pre-contrast images. No perinephric fat stranding. There is normal bilateral renal enhancement. Renal calyces appear normal in morphology when filled with contrast. Opacified portions of both ureters demonstrate normal caliber. Bladder wall thickness is normal. No calcified bladder stones. There is a 1 cm medial right lower renal cortical cyst, simple in character and water in radiodensity. Other solid organs: Liver is normal in size and enhancement. Gallbladder appears normal . Biliary system is non dilated. Pancreas enhances normally. Spleen is normal in size and enhancement. No adrenal nodules. Peritoneum and bowel: Bowel loops demonstrate normal wall thickness and caliber. No free fluid or air. Nodes and vessels: No retroperitoneal or mesenteric adenopathy by size criteria. Aorta and inferior vena cava are normal in size. Abdominal wall: No ventral hernias. Pelvis: No pathologic free pelvic fluid. No inguinal hernias or adenopathy. Bones: No suspicious bony lesions. No vertebral body compression fractures. IMPRESSION: A urinary tract stone is not seen. The contrast-enhanced scanning shows no evidence of urothelial or renal cortical mass. A source of hematuria is not found. Dictated by: Ivan Butterfield M.D. on 03/27/2020 at 14:28 Approved by: Ivan Butterfield M.D. on 03/27/2020 at 15:32
== END ==
PROVIDERS: PCP Family Medicine; Referring Provider Specialist; Visit Provider Specialist
DX: R31.0 Gross hematuria (principal)
CPT/HCPCS: 74178; Q9967

== ENCOUNTER → 2020-06-27 09:05 | Outpatient (CLI) | payer OTHER, SELFPAY ==
[2020-06-27 10:38] LABS: Prostate Specific Antigen 0.752 ng/mL (0.10-4.00)
== END ==
PROVIDERS: PCP Family Medicine; Referring Provider Specialist; Visit Provider Specialist
DX: R97.20 Elevated prostate specific antigen [PSA] (principal)
CPT/HCPCS: 36415; 84153

== ENCOUNTER → 2021-12-04 09:52 | Outpatient (CLI) | payer OTHER, SELFPAY ==
[2021-12-05 16:21] LABS: Prostate Specific Antigen 0.499 ng/mL (0.10-4.00)
== END ==
PROVIDERS: PCP Internal Medicine; Referring Provider Specialist; Visit Provider Specialist
DX: R97.20 Elevated prostate specific antigen [PSA] (principal)
CPT/HCPCS: 36415; 84153

== ENCOUNTER → 2022-03-05 09:31 | Outpatient (CLI) | payer OTHER, SELFPAY ==
[2022-03-05 10:04] LABS: Alanine Aminotransferase 33 IU/L (<50); Albumin 3.9 g/dL (3.5-5.0); Albumin Globulin Ratio 1.3 (1.0-2.8); Alkaline Phosphatase 89 U/L (38-126); Aspartate Aminotransferase 25 IU/L (17-59); BUN Creatinine Ratio 24.4 (6-22); Bilirubin Total 0.5 mg/dL (0.2-1.3); Blood Urea Nitrogen 21 mg/dL (9-20); Calcium 8.5 mg/dL (8.4-10.2); Carbon Dioxide 29 mmol/L (22-32); Chloride 103 mmol/L (98-107); Cholesterol 163 mg/dL (140-199); Estimated Glomerular Filt Rate > 60 mL/min (>60); Globulin 2.9 g/dL (1.7-4.1); Glucose 94 mg/dL (80-110); HDL Cholesterol 44 mg/dL (40-60); HEMOLYSIS < 15 (0-50); LDL Cholesterol Calculated 102 mg/dL (<100); Sodium 136 mmol/L (137-145); Total Protein 6.8 g/dL (6.3-8.2); Triglycerides 85 mg/dL (35-150)
== END ==
PROVIDERS: PCP Internal Medicine; Referring Provider Internal Medicine; Visit Provider Internal Medicine
DX: E78.2 Mixed hyperlipidemia (principal); I10 Essential (primary) hypertension
CPT/HCPCS: 36415; 80053; 80061

== ENCOUNTER → 2022-07-22 12:40 | Outpatient (CLI) | payer OTHER, SELFPAY ==
--- NOTE | 2022-07-22 12:41 | DI.US.S_ITS ---
PROCEDURE: US ABDOMEN LIMITED INDICATIONS: painless nodule, left groin area TECHNIQUE: Real-time focused scanning was performed of the abdomen, with image documentation. COMPARISON: None. FINDINGS: At the area of lump, there is a well-circumscribed isoechoic lesion measuring 2.9 x 3.5 x 1.3 cm. 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 Continued clinical follow-up is recommended. If this becomes larger or otherwise symptomatic, consider repeat imaging or sampling. Dictated by: Nam Winston M.D. on 07/22/2022 at 13:30 Approved by: Nam Winston M.D. on 07/22/2022 at 13:31
== END ==
PROVIDERS: PCP Internal Medicine; Referring Provider Nurse Practitioner Family; Visit Provider Nurse Practitioner Family
DX: R22.2 Localized swelling, mass and lump, trunk (principal)
CPT/HCPCS: 76705

== ENCOUNTER → 2023-01-20 10:05 | Outpatient (CLI) | payer OTHER, SELFPAY ==
[2023-01-20 10:57] LABS: Add Manual Diff / Slide Review NO; Basophils Absolute Auto 0 /uL (0-100); Basophils Percent Auto 0.6 % (0-2); Eosinophils Absolute Auto 300 /uL (0-450); Eosinophils Percent Auto 3.1 % (2-4); Hematocrit 39.9 % (41-53); Hemoglobin 13.7 g/dL (13.5-17.5); Lymphocytes Absolute Auto 1700 /uL (1100-4500); Lymphocytes Percent Auto 21.3 % (25-40); Mean Corpuscular HGB Conc 34.3 % (30-36); Mean Corpuscular Hemoglobin 30.2 PG (26-34); Monocytes Absolute Auto 700 /uL (0-900); Monocytes Percent Auto 8.4 % (3-14); Neutrophils Absolute Auto 5500 /uL (1500-7000); Neutrophils Percent Auto 66.6 % (50-75); Platelet Count 178 X10^3/uL (150-400); Red Blood Cell Count 4.53 X10^6/uL (4.5-5.9); Red Cell Distribution Width 14.6 % (11.6-14.8); White Blood Cell Count 8.2 X10^3/uL (4.5-11.0)
[2023-01-20 11:21] LABS: Alanine Aminotransferase 46 IU/L (<50); Albumin 3.7 g/dL (3.5-5.0); Albumin Globulin Ratio 1.5 (1.0-2.8); Alkaline Phosphatase 101 U/L (38-126); Aspartate Aminotransferase 36 IU/L (17-59); BUN Creatinine Ratio 25.6 (6-22); Bilirubin Total 0.5 mg/dL (0.2-1.3); Blood Urea Nitrogen 23 mg/dL (9-20); Calcium 8.8 mg/dL (8.4-10.2); Carbon Dioxide 26 mmol/L (22-32); Chloride 105 mmol/L (98-107); Cholesterol 155 mg/dL (140-199); Creatine Kinase 157 U/L (55-170); Estimated Glomerular Filt Rate > 60 mL/min (>60); Globulin 2.4 g/dL (1.7-4.1); Glucose 98 mg/dL (80-110); HDL Cholesterol 42 mg/dL (40-60); HEMOLYSIS < 15 (0-50); LDL Cholesterol Calculated 77 mg/dL (<100); Potassium 4.2 mmol/L (3.4-5.1); Sodium 137 mmol/L (137-145); Total Protein 6.1 g/dL (6.3-8.2); Triglycerides 182 mg/dL (35-150)
[2023-01-20 11:24] LABS: High Sensitivity CRP - Cardiac 6.1 mg/L (1.0-3.0)
[2023-01-20 11:50] LABS: TSH w/ Reflex to FT4 2.26 uIU/mL (0.47-4.68)
[2023-01-20 11:51] LABS: Prostate Specific Antigen Scrn 0.872 ng/mL (0.1-4.0)
[2023-01-20 12:07] LABS: Appearance Urine UA CLEAR; Bilirubin Urine UA NEGATIVE (NEGATIVE); Color Urine UA YELLOW; Glucose Urine UA NEGATIVE (Negative); Ketones Urine UA NEGATIVE (NEGATIVE); Leukocyte Esterase Urine UA NEGATIVE (NEGATIVE); Nitrite Urine UA NEGATIVE (Negative); Occult Blood Urine UA NEGATIVE (Negative); Protein Urine UA NEGATIVE (Negative); Specific Gravity Urine UA 1.025 (1.000-1.035); pH Urine UA 5.5 (4.5-8.0)
[2023-01-20 12:21] LABS: Amorphous Sediment Urine 1+; Bacteria Urine None Seen; Culture Indicated Urine Cult Not Indicated; RBC Urine None Seen (0-5/HPF); Squamous Epithelial Cell Urine 0-1 /HPF (0-5/HPF); WBC Urine 0-1/HPF (0-5/HPF)
[2023-01-21 05:18] LABS: x Labcorp Estim. Avg Glu (eAG) 134 mg/dL (.); x Labcorp Hemoglobin A1c 6.3 % (4.8-5.6)
== END ==
PROVIDERS: PCP Internal Medicine; Referring Provider Pediatrics; Visit Provider Pediatrics
DX: E66.01 Morbid (severe) obesity due to excess calories (principal); E78.2 Mixed hyperlipidemia; G47.33 Obstructive sleep apnea (adult) (pediatric); I10 Essential (primary) hypertension; N13.8 Other obstructive and reflux uropathy; N40.1 Benign prostatic hyperplasia with lower urinary tract symptoms; R60.9 Edema, unspecified; Z12.5 Encounter for screening for malignant neoplasm of prostate; R07.9 Chest pain, unspecified
CPT/HCPCS: 36415; 80053; 80061; 81001; 82550; 83036; 84443; 85025; 86140; G0103

== ENCOUNTER → 2023-01-27 12:16 | Outpatient (CLI) | payer OTHER, SELFPAY | PROVIDERS: PCP Internal Medicine; Referring Provider Pediatrics; Visit Provider Pediatrics | DX: R06.09 Other forms of dyspnea (principal); R09.89 Other specified symptoms and signs involving the circulatory and respiratory systems | CPT/HCPCS: 94060 ==

== ENCOUNTER → 2023-02-06 06:40 | Outpatient (CLI) | payer OTHER, SELFPAY ==
--- NOTE | 2023-02-06 06:41 | DI.ECHO.S_ITS ---
[facility]---------+ [facility] +---------+ : : [address] : : : : [id number] : : : : Phone: [phone] Echocardiogram Report + + :Name: KIM GONZALEZ Study Date: 02/06/2023 Height: 69 in : :[facility] ReadingLocation: Weight: 330 lb : : Gender: Male BSA: 2.6 m2 : :: 1960 Age: 63 yrs BP: 114/83 mmHg: :Reason For Study: PETER, SOB : :Ordering Physician: SANTI, : :BENITO Mello Performed By: Elodia Finnegan : :Referring: BENITO HANCOCK : + + Interpretation Summary Technically difficult study. Mild concentric left ventricular hypertrophy with ejection fraction 60-65%. No significant valvular abnormality. Procedure: A two-dimensional transthoracic echocardiogram with color flow and Doppler was performed. The study quality was technically difficult. A contrast injection of Definity was performed to improve assessment of LV function. There is no prior echocardiogram noted for this patient. The patient was in sinus rhythm with heart rates between 64-73 bpm during the exam. Left Ventricle: The left ventricle is normal in size. There is mild concentric left ventricular hypertrophy. The ejection fraction is estimated to be 60-65%. There are no focal wall motion abnormalities. Right Ventricle: The right ventricle is grossly normal size. The right ventricular systolic function is normal. Atria: The left atrial size is normal. Right atrial size is normal. There is no Doppler evidence for an interatrial shunt. Mitral Valve: The mitral valve is normal in structure and function. There is mild mitral regurgitation. Aortic Valve: The aortic valve is trileaflet. The aortic valve opens well. There is no aortic valve stenosis. No aortic regurgitation is present. Tricuspid Valve: The tricuspid valve is normal in structure and function. There is mild tricuspid regurgitation. Pulmonic Valve: The pulmonic valve leaflets are thin and pliable; valve motion is normal. There is trace pulmonic regurgitation. Great Vessels: The aortic root is normal size. The dimensions of the ascending aorta are normal. The IVC is of normal diameter and collapses greater than 50% with a sniff. This suggests a low right atrial pressure of 3 mm Hg. Pericardium/ Pleura There is no pericardial effusion. There is no pleural effusion. MMode/2D Measurements & Calculations LVIDd: 5.3 cm LVOT diam: 2.0 cm LVIDs: 3.3 cm Ao root diam: 3.3 cm FS: 37.1 % asc Aorta Diam: 3.1 cm IVSd: 1.1 cm Ao Arch Diam (Prox Trans): 2.9 cm LVPWd: 0.84 cm LV marquez. diameter/BSA (cm/m^2): 2.1 LV sys. diameter/BSA (cm/m^2): 1.3 LA A2 area: 20.6 cm2 RA long axis: 4.2 cm LA A4 area: 17.6 cm2 RA area: 13.8 cm2 LA length (vol): 5.7 cm RA vol: 38.8 ml LA vol: 53.6 ml RA : 15.2 ml/m2 LA vol index: 21.0 ml/m2 RVD1 (basal): 3.3 cm TAPSE: 2.4 cm Doppler Measurements & Calculations Ao V2 max: 140.3 cm/sec LVOT Max Bakari: 96.0 cm/sec Ao V2 mean: 105.8 cm/sec LV V1 max P.7 mmHg Ao max P.9 mmHg LV V1 VTI: 19.9 cm Ao mean P.8 mmHg MANUELITO(I,D): 2.1 cm2 Ao V2 VTI: 30.6 cm MANUELITO(V,D): 2.2 cm2 sev ratio: 0.65 MANUELITO indexed to BSA (cm^2/m^2): 0.82 MV E max bakari: 100.5 cm/sec PA V2 max: 100.1 cm/sec MV A max bakari: 78.5 cm/sec PA V2 mean: 70.6 cm/sec MV E/A: 1.3 PA mean P.2 mmHg Med Peak E' Bakari: 7.5 cm/sec PA pr(Accel): 31.0 mmHg E/E' med: 13.4 Lat Peak E' Bakari: 9.2 cm/sec E/E' lat: 10.9 E/e' average: 12.2 MV dec time: 0.23 sec SV(LVOT): 64.3 ml Electronically signed by: Jordan Acevedo on Reading Physician:02/06/2023 11:33 AM
== END ==
PROVIDERS: PCP Pediatrics; Referring Provider Pediatrics; Visit Provider Pediatrics
DX: I08.1 Rheumatic disorders of both mitral and tricuspid valves (principal); R07.9 Chest pain, unspecified; I10 Essential (primary) hypertension; E78.2 Mixed hyperlipidemia; N40.1 Benign prostatic hyperplasia with lower urinary tract symptoms; N13.8 Other obstructive and reflux uropathy; R60.9 Edema, unspecified; G47.33 Obstructive sleep apnea (adult) (pediatric); E66.01 Morbid (severe) obesity due to excess calories
CPT/HCPCS: C8929; Q9957

== ENCOUNTER → 2023-10-24 05:58 | Outpatient (CLI) | payer OTHER, SELFPAY ==
[2023-10-24 07:58] LABS: Add Manual Diff / Slide Review NO; Basophils Absolute Auto 0 /uL (0-100); Basophils Percent Auto 0.6 % (0-2); Eosinophils Absolute Auto 400 /uL (0-450); Eosinophils Percent Auto 4.3 % (2-4); Hematocrit 42.7 % (41-53); Hemoglobin 14.4 g/dL (13.5-17.5); Lymphocytes Absolute Auto 2300 /uL (1100-4500); Mean Corpuscular HGB Conc 33.7 % (30-36); Mean Corpuscular Hemoglobin 29.6 PG (26-34); Mean Corpuscular Volume 87.6 fL (80-100); Monocytes Absolute Auto 700 /uL (0-900); Monocytes Percent Auto 7.9 % (3-14); Neutrophils Absolute Auto 5100 /uL (1500-7000); Neutrophils Percent Auto 60.2 % (50-75); Platelet Count 192 X10^3/uL (150-400); Red Blood Cell Count 4.87 X10^6/uL (4.5-5.9); Red Cell Distribution Width 15.5 % (11.6-14.8); White Blood Cell Count 8.4 X10^3/uL (4.5-11.0)
[2023-10-24 08:26] LABS: BUN Creatinine Ratio 23.9 (6-22); Blood Urea Nitrogen 21 mg/dL (9-20); Calcium 9.2 mg/dL (8.4-10.2); Carbon Dioxide 27 mmol/L (22-32); Chloride 105 mmol/L (98-107); Cholesterol 168 mg/dL (140-199); Estimated Glomerular Filt Rate > 60 mL/min (>60); Glucose 101 mg/dL (80-110); HDL Cholesterol 49 mg/dL (40-60); HEMOLYSIS < 15 (0-50); LDL Cholesterol Calculated 93 mg/dL (<100); Potassium 4.4 mmol/L (3.4-5.1); Sodium 137 mmol/L (137-145); Triglycerides 129 mg/dL (35-150)
[2023-10-24 08:30] LABS: NT-proBNP (BNP-Adult 18+) < 20 pg/mL (<125)
== END ==
LOC: LAB 06:09
PROVIDERS: PCP Internal Medicine; Referring Provider Internal Medicine Cardiovascular Disease; Visit Provider Internal Medicine Cardiovascular Disease
DX: R06.02 Shortness of breath (principal); I10 Essential (primary) hypertension; E78.5 Hyperlipidemia, unspecified
CPT/HCPCS: 36415; 80048; 80061; 83880; 85025

== ENCOUNTER → 2023-11-16 12:41 | Outpatient (CLI) | payer OTHER, SELFPAY ==
[2023-11-16 14:07] LABS: Appearance Urine UA SL CLOUDY; Bilirubin Urine UA NEGATIVE (NEGATIVE); Color Urine UA YELLOW; Glucose Urine UA NEGATIVE (Negative); Ketones Urine UA NEGATIVE (NEGATIVE); Leukocyte Esterase Urine UA TRACE (NEGATIVE); Nitrite Urine UA POSITIVE (Negative); Occult Blood Urine UA NEGATIVE (Negative); Protein Urine UA NEGATIVE (Negative); Specific Gravity Urine UA 1.025 (1.000-1.035); pH Urine UA 5.5 (4.5-8.0)
[2023-11-16 14:13] LABS: Urine Volume 10mL (spun)
[2023-11-16 14:14] LABS: Bacteria Urine Many (>30); Culture Indicated Urine Specimen Cultured; RBC Urine None Seen (0-5/HPF); Squamous Epithelial Cell Urine 1-5 /HPF (0-5/HPF); WBC Urine 5-10/HPF (0-5/HPF)
== END ==
PROVIDERS: PCP Internal Medicine; Referring Provider Internal Medicine; Visit Provider Internal Medicine
DX: R31.9 Hematuria, unspecified (principal); R30.0 Dysuria
CPT/HCPCS: 81001; 87077; 87086

== ENCOUNTER 2023-11-29 07:54 | Emergency (ER) | payer OTHER, SELFPAY ==
[2023-11-29 08:04] VITALS: BP 142/68; PULSE 98; RESP 18; TEMP 36.7; O2SAT 96; BMI 32.5
--- NOTE | 2023-11-29 08:13 | DI.RAD.S_ITS ---
PROCEDURE: XR CHEST 1V INDICATIONS: short of breath TECHNIQUE: One view of the chest was acquired. COMPARISON: [facility], CR, XR CHEST 2V, 02/23/2018, 16:08. FINDINGS: Surgical changes and devices: None. Lungs and pleura: Lungs are clear. No pleural effusions or pneumothorax. Mediastinum: Mediastinal contours appear normal. Heart size is normal. Bones and chest wall: No suspicious bony lesions. Overlying soft tissues appear unremarkable. IMPRESSION: No acute cardiopulmonary abnormality is seen. Dictated by: Marques Sheehan M.D. on 11/29/2023 at 8:29 Approved by: Marques Sheehan M.D. on 11/29/2023 at 8:30
--- NOTE | 2023-11-29 08:15 | ED.SOB ---
HPI - SOB/Dyspnea General Chief Complaint: Upper Respiratory Symptoms Stated Complaint: cough, wheezing, diff breathing Time Seen by Provider: 11/29/23 08:05 Source: patient Mode of arrival: Ambulatory History of Present Illness HPI Narrative: Patient 63-year-old male history of hypertension, seasonal allergies lower extremity edema on furosemide presenting today with 6 days increasing wheezing and shortness of breath. He reports that he has not able to lie flat anymore to sleep. He does not feel like he is sick he has no head congestion fever or chills. He did cough up some productive sputum this morning. No real chest pain. He does not feel like his lower extremities are anymore swollen than normal. He states the he can hear himself wheeze and it is audible in the room. He overall appears well. reports that she had bronchitis a couple weeks ago. He has no other symptoms. Related Data Home Medications Medication Instructions Recorded Confirmed Respironics Dreamstation CPAP #1 ea 12/06/18 07/27/23 cyclosporine 0.09 % eye drops in a 1 drp EYE-BOTH Q12H 03/24/22 07/27/23 dropperette (Cequa) triprolidine-pseudoephedrine 2.5 1 tab PO ONCE PRN 07/27/23 07/27/23 mg-60 mg tablet (Aprodine) Previous Rx's Medication Instructions Recorded fexofenadine 180 mg tablet 180 mg PO DAILY #90 tabs 08/12/19 (Estefani Allergy) meloxicam 15 mg tablet 15 mg PO DAILY #90 tabs 02/27/23 tamsulosin 0.4 mg capsule 0.4 mg PO BEDTIME #90 caps 03/10/23 lisinopril 20 mg tablet 20 mg PO BID #180 tabs 08/03/23 furosemide 40 mg tablet 40 mg PO QDAY PRN edema #90 tabs 08/18/23 simvastatin 20 mg tablet 20 mg PO HS #90 tabs 10/13/23 albuterol sulfate 90 mcg/actuation 2 puff inhalation Q4-6H PRN 11/29/23 aerosol inhaler shortness of breath or wheezing #8.5 grams Allergies Allergy/AdvReac Type Severity Reaction Status Date / Time No Known Drug Allergies Allergy Verified 11/29/23 08:06 Patient History Medical History Peripheral edema (~2015) Nocturia associated with benign prostatic hyperplasia BPH w urinary obs/LUTS Gross hematuria Foraminal stenosis of cervical region Facet arthropathy, cervical Cervicalgia Insomnia Snoring Morbid obesity with body mass index of 40.0-49.9 Vision disorder Sleep apnea (~2011) Headache (~1991) Ankle pain (~2013) Hearing loss (~1991) Hypertension (~2009) Elevated prostate specific antigen (PSA) (07/20/17) Mixed hyperlipidemia (08/28/15) Essential hypertension (10/10/11) Surgical History Anesthesia Status post appendectomy Family History Father No problems noted. Social History marital status: occupational status: employed Smoking Status: Never smoker alcohol intake: current substance use type: does not use caffeine: Yes Smoking Status: Never smoker alcohol intake frequency: 0-2 drinks per day Substance Use Type: does not use Exam Initial Vital Signs Initial Vital Signs: Vital Signs Temperature 98.1 F 11/29/23 08:04 Pulse Rate 98 H 11/29/23 08:04 Respiratory Rate 18 11/29/23 08:04 Blood Pressure 142/68 H 11/29/23 08:04 Pulse Oximetry 96 11/29/23 08:04 Oxygen Delivery Method Room Air 11/29/23 08:04 GENERAL: Alert pleasant 63-year-old male and in no acute distress. HEENT: Head atraumatic,EOMI, pupils reactive, face symmetric, moist mucous membranes CARDIOVASCULAR: Regular rate and rhythm without murmurs, rubs or gallops. RESPIRATORY: Audible wheezing but no respiratory distress decreased breath sounds bilaterally ABDOMEN: Soft, nontender. Normoactive bowel sounds all 4 quadrants. No guarding or rebound. EXTREMITIES: Normal range of motion, no clubbing. +2 pitting edema. Neurovascularly intact NEUROLOGICAL: Alert and oriented x4.Normal gait and speech. SKIN: Warm, dry, no laceration, no petechiae, no rashes or lesions. Course Orders Ordered: ED Orders 11/29/23 08:13 XR chest 1V Stat EKG-12 Lead Stat 11/29/23 08:21 Respiratory Panel (Film Array) Stat 11/29/23 08:25 Complete Blood Count AUTO DIFF Stat Comprehensive Metabolic Panel Stat Lipase Stat NT-proBNP (BNP-Adult 18+) Stat Procalcitonin Stat Troponin & CK Cardiac Panel Stat Discontinued Medications Albuterol (Albuterol 2.5 Mg/3 Ml Neb (Adult)) 2.5 mg INH NOW ONE Stop: 11/29/23 08:14 Last Admin: 11/29/23 08:29 Dose: 2.5 mg Documented By: GOGO Vital Signs Vital signs: Vital Signs - 8 hr 11/29/23 08:04 11/29/23 08:29 11/29/23 08:43 Temperature 98.1 F Pulse Rate 98 H 99 H 97 H Respiratory Rate 18 20 20 Blood Pressure 142/68 H 123/61 Pulse Oximetry 96 96 95 Oxygen Delivery Method Room Air Room Air Room Air 11/29/23 10:10 Temperature Pulse Rate 93 H Respiratory Rate 16 Blood Pressure 104/69 Pulse Oximetry 95 Oxygen Delivery Method Room Air MDM - SOB/Dyspnea Lab Data 11/29/23 08:25 11/29/23 08:25 Labs: Lab Results 11/29/23 11/29/23 Range/Units 08:21 08:25 WBC 6.6 (4.5-11.0) X10^3/uL RBC 4.83 (4.5-5.9) X10^6/uL Hgb 14.3 (13.5-17.5) g/dL Hct 42.2 (41-53) % MCV 87.5 (80-100) fL MCH 29.7 (26-34) PG MCHC 33.9 (30-36) % RDW 15.3 H (11.6-14.8) % Plt Count 180 (150-400) X10^3/uL Neut % (Auto) 63.7 (50-75) % Lymph % (Auto) 20.4 L (25-40) % Woodward % (Auto) 10.3 (3-14) % Eos % (Auto) 4.9 H (2-4) % Baso % (Auto) 0.7 (0-2) % Neut # (Auto) 4200 (9240-3283) /uL Lymph # (Auto) 1400 (8769-9713) /uL Woodward # (Auto) 700 (0-900) /uL Eos # (Auto) 300 (0-450) /uL Baso # (Auto) 0 (0-100) /uL Sodium 135 L (137-145) mmol/L Potassium 4.2 (3.4-5.1) mmol/L Chloride 106 (98-107) mmol/L Carbon Dioxide 23 (22-32) mmol/L BUN 34 H (9-20) mg/dL Creatinine 1.08 (0.66-1.25) mg/dL Estimated GFR > 60 (>60) mL/min BUN/Creatinine Ratio 31.5 H (6-22) Glucose 161 H (80-110) mg/dL Calcium 8.4 (8.4-10.2) mg/dL Total Bilirubin 0.6 (0.2-1.3) mg/dL AST 30 (17-59) IU/L ALT 35 (<50) IU/L Alkaline Phosphatase 96 (38-126) U/L Total Creatine Kinase 110 (55-170) U/L Troponin I < 0.012 (0.01-0.034) ng/mL NT-Pro-B Natriuret Pep < 20 (<125) pg/mL Total Protein 6.5 (6.3-8.2) g/dL Albumin 3.8 (3.5-5.0) g/dL Globulin 2.7 (1.7-4.1) g/dL Albumin/Globulin Ratio 1.4 (1.0-2.8) Lipase 78 (23-300) U/L Procalcitonin 0.097 (<0.5) ng/mL Chlamy pneumoniae PCR Not detected (Not Detect) Adenovirus (PCR) Not detected (Not Detect) B.parapertussis DNA PCR Not detected (Not Detecte) Coronavirus OC43 (PCR) Not detected (Not Detect) Coronavirus HKU1 (PCR) Not detected (Not Detect) Coronavirus 229E (PCR) Not detected (Not Detect) SARS-CoV-2 (PCR) Not detected (Not Detecte) Coronavirus NL63 (PCR) Not detected (Not Detect) Human Metapneumovir PCR Not detected (Not Detect) Influenza Type A (PCR) Not detected (Not Detect) Influenza Type B (PCR) Not detected (Not Detect) M. pneumoniae (PCR) Not detected (Not Detect) Parainfluenza 1 (PCR) Not detected (Not Detect) Parainfluenza 2 (PCR) Not detected (Not Detect) Parainfluenza 3 (PCR) Detected H (Not Detect) Parainfluenza 4 (PCR) Not detected (Not Detect) RSV (PCR) Not detected (Not Detect) Entero/Rhino (PCR) Not detected (Not Detect) Imaging Data Chest x-ray: Radiologist's Impression: PROCEDURE: XR CHEST 1V INDICATIONS: short of breath TECHNIQUE: One view of the chest was acquired. COMPARISON: [facility], , XR CHEST 2V, 02/23/2018, 16:08. FINDINGS: Surgical changes and devices: None. Lungs and pleura: Lungs are clear. No pleural effusions or pneumothorax. Mediastinum: Mediastinal contours appear normal. Heart size is normal. Bones and chest wall: No suspicious bony lesions. Overlying soft tissues appear unremarkable. IMPRESSION: No acute cardiopulmonary abnormality is seen. Dictated by: Marques Sheehan M.D. on 11/29/2023 at 8:29 ECG Data Attestation: I personally reviewed and interpreted this ECG as follows: Prior ECG tracings: available for review Interpretation: Normal sinus rhythm rate 94 AR interval 148 QRS 126 QTC 470 right bundle-branch block noted MDM Narrative Medical decision making narrative: Patient 63-year-old male history of lower extremity edema on Lasix hypertension hyperlipidemia presenting today with wheezing. He does not report any sort of fever or illness but is having more of a productive cough. Reports shortness of breath with exertion. On exam he does have some audible wheezing but no obvious respiratory distress. No hypoxia or tachypnea Blood work has been reviewed: He has no leukocytosis a negative troponin BNP is negative respiratory panel is positive for parainfluenza virus Chest x-ray does not show any evidence of pneumonia EKG has been reviewed Patient is positive for parainfluenza virus which is consistent with his viral like symptoms. He has no evidence of distant heart failure acute coronary syndrome no evidence of a pneumonia. At this time no need for antibiotics. At this time supportive care only. He has not hypoxic no obvious signs of respiratory distress. Patient received albuterol treatment here in the ED Discharge Plan Departure Patient Disposition: Home Clinical Impression: Parainfluenza infection Instructions: Common Cold Activity Restrictions/Additional Instructions: *You have been diagnosed with parainfluenza virus *What to do: This is a very common virus stay hydrated rest. *Continue to take medications as directed Albuterol 1-2 puffs every 4 hours if needed for wheezing or shortness of breath *Follow up with your primary care provider in 2-3 days or call [phone] *Return to ER if you should have increase shortness of breath chest pain fever[or] any new, worsening or concerning symptoms Prescriptions: New albuterol sulfate 90 mcg/actuation HFA aerosol inhaler 2 puff INHALATION Q4-6H PRN (Reason: shortness of breath or wheezing) Qty: 8.5 0RF No Action fexofenadine [Estefani Allergy] 180 mg tablet 180 mg PO DAILY Qty: 90 3RF meloxicam 15 mg tablet 15 mg PO DAILY Qty: 90 3RF tamsulosin 0.4 mg capsule 0.4 mg PO BEDTIME Qty: 90 3RF lisinopril 20 mg tablet 20 mg PO BID Qty: 180 2RF furosemide 40 mg tablet 40 mg PO QDAY PRN (Reason: edema) Qty: 90 1RF Rx Instructions: PLEASE KEEP 07/27/23 APPT FOR CONTIUNED FILLS. THANKS 07/21/23. simvastatin 20 mg tablet 20 mg PO HS Qty: 90 3RF Cequa 0.09 % dropperette 1 drp EYE-BOTH Q12H Aprodine 2.5-60 mg tablet 1 tab PO ONCE PRN Rx Instructions: DNExceed 4 doses/24h (DME) Respironics Dreamstation CPAP Qty: 1 Dose Instruction: As directed Patient Comments: Pressure: 6-16 cmH2O DME: [facility] Rx Instructions: As directed Referrals: Duran Raya MD [Primary Care Provider] - Stand Alone Forms: Patient Portal/API
[2023-11-29 08:29] VITALS: PULSE 99; RESP 20; O2SAT 96
[2023-11-29] MEDS: ALBUTEROL 2.5 MG/3 ML NEB (ADULT) INH (08:29)
[2023-11-29 08:35] LABS: Add Manual Diff / Slide Review NO; Basophils Absolute Auto 0 /uL (0-100); Basophils Percent Auto 0.7 % (0-2); Eosinophils Absolute Auto 300 /uL (0-450); Eosinophils Percent Auto 4.9 % (2-4); Hematocrit 42.2 % (41-53); Hemoglobin 14.3 g/dL (13.5-17.5); Lymphocytes Absolute Auto 1400 /uL (1100-4500); Lymphocytes Percent Auto 20.4 % (25-40); Mean Corpuscular HGB Conc 33.9 % (30-36); Mean Corpuscular Hemoglobin 29.7 PG (26-34); Mean Corpuscular Volume 87.5 fL (80-100); Monocytes Absolute Auto 700 /uL (0-900); Monocytes Percent Auto 10.3 % (3-14); Neutrophils Absolute Auto 4200 /uL (1500-7000); Neutrophils Percent Auto 63.7 % (50-75); Platelet Count 180 X10^3/uL (150-400); Red Blood Cell Count 4.83 X10^6/uL (4.5-5.9); Red Cell Distribution Width 15.3 % (11.6-14.8); White Blood Cell Count 6.6 X10^3/uL (4.5-11.0)
[2023-11-29 08:43] VITALS: BP 123/61; PULSE 97; RESP 20; O2SAT 95
[2023-11-29 09:07] LABS: Alanine Aminotransferase 35 IU/L (<50); Albumin 3.8 g/dL (3.5-5.0); Albumin Globulin Ratio 1.4 (1.0-2.8); Alkaline Phosphatase 96 U/L (38-126); Aspartate Aminotransferase 30 IU/L (17-59); BUN Creatinine Ratio 31.5 (6-22); Bilirubin Total 0.6 mg/dL (0.2-1.3); Blood Urea Nitrogen 34 mg/dL (9-20); Calcium 8.4 mg/dL (8.4-10.2); Carbon Dioxide 23 mmol/L (22-32); Chloride 106 mmol/L (98-107); Creatine Kinase 110 U/L (55-170); Estimated Glomerular Filt Rate > 60 mL/min (>60); Globulin 2.7 g/dL (1.7-4.1); Glucose 161 mg/dL (80-110); HEMOLYSIS 16 (0-50); Lipase 78 U/L (23-300); Potassium 4.2 mmol/L (3.4-5.1); Sodium 135 mmol/L (137-145); Total Protein 6.5 g/dL (6.3-8.2)
[2023-11-29 09:17] LABS: B. parapertussis Not Detected (Not Detecte); Bordetella pertussis Not Detected (Not Detect); Chlamydophila pneumoniae Not Detected (Not Detect); Mycoplasma pneumoniae Not Detected (Not Detect)
[2023-11-29 09:18] LABS: Adenovirus Not Detected (Not Detect); Coronavirus 229E Not Detected (Not Detect); Coronavirus HKU1 Not Detected (Not Detect); Coronavirus NL 63 Not Detected (Not Detect); Coronavirus OC43 Not Detected (Not Detect); Human Metapneumovirus Not Detected (Not Detect); Human Rhinovirus/Enterovirus Not Detected (Not Detect); Influenza A Not Detected (Not Detect); Influenza B Not Detected (Not Detect); Parainfluenza Virus 1 Not Detected (Not Detect); Parainfluenza Virus 2 Not Detected (Not Detect); Parainfluenza Virus 3 Detected (Not Detect); Parainfluenza Virus 4 Not Detected (Not Detect); Respiratory Syncytial Virus Not Detected (Not Detect); SARS- CoV-2 Not Detected (Not Detecte)
[2023-11-29 09:19] LABS: Troponin I < 0.012 ng/mL (0.01-0.034)
[2023-11-29 09:23] LABS: Procalcitonin 0.097 ng/mL (<0.5)
[2023-11-29 09:42] LABS: NT-proBNP (BNP-Adult 18+) < 20 pg/mL (<125)
[2023-11-29 10:10] VITALS: BP 104/69; PULSE 93; RESP 16; O2SAT 95
--- NOTE | 2023-11-29 10:15 | PC.NURSE ---
RT coming for spacer training.
--- NOTE | 2023-11-29 10:45 | RT ---
pt ashlyn marcano tx well, no distress noted and on room air.
== END 2023-11-29 10:15 | disposition home or self-care (01) ==
PROVIDERS: Emergency Provider Emergency Medicine; PCP Internal Medicine
DX: B34.8 Other viral infections of unspecified site (principal); R06.02 Shortness of breath; Z79.899 Other long term (current) drug therapy; Z20.822 Contact with and (suspected) exposure to COVID-19
CPT/HCPCS: 36415; 71045; 80053; 82550; 83690; 83880; 84145; 84484; 85025; 87633; 93005; 94640; 99284; J7613

== ENCOUNTER → 2024-03-20 15:00 | Outpatient (CLI) | payer OTHER, SELFPAY ==
--- NOTE | 2024-03-20 | DI.NM.S_ITS ---
PROCEDURE: NM EXERCISE TREADMILL NON NUC COMPARISON: None. INDICATIONS: SOB FINDINGS: Rest ECG sinus rhythm, RBBB, 86 bpm. Jerardo protocol 3:54, maximum heart rate 149 bpm (95% peak predicted), maximum blood pressure 148/90, 7.0 METS, CECI +45%. Exercise ECG sinus tachycardia, no ST segment changes or arrhythmia. The patient did not complain of exercise-induced chest discomfort. IMPRESSION: Low risk study for ischemia. No evidence of exercise-induced ischemia or arrhythmia. Accelerated heart rate response. Normal blood pressure response. Reduced exercise capacity. Dictated by: Estrella Cao D.O. on 03/20/2024 at 16:51 Approved by: Estrella Cao D.O. on 03/20/2024 at 16:53
== END ==
PROVIDERS: PCP Internal Medicine; Referring Provider Internal Medicine Cardiovascular Disease; Visit Provider Internal Medicine Cardiovascular Disease
DX: R06.02 Shortness of breath (principal)
CPT/HCPCS: 93017

== ENCOUNTER → 2024-06-13 09:40 | Outpatient (CLI) | payer OTHER, SELFPAY ==
[2024-06-13 10:23] LABS: Add Manual Diff / Slide Review NO; Basophils Absolute Auto 0 /uL (0-100); Basophils Percent Auto 0.6 % (0-2); Eosinophils Absolute Auto 200 /uL (0-450); Eosinophils Percent Auto 2.6 % (2-4); Hematocrit 41.4 % (41-53); Hemoglobin 14.1 g/dL (13.5-17.5); Lymphocytes Absolute Auto 2000 /uL (1100-4500); Lymphocytes Percent Auto 23.3 % (25-40); Mean Corpuscular HGB Conc 34.1 % (30-36); Mean Corpuscular Volume 88.2 fL (80-100); Monocytes Absolute Auto 700 /uL (0-900); Monocytes Percent Auto 7.7 % (3-14); Neutrophils Absolute Auto 5600 /uL (1500-7000); Neutrophils Percent Auto 65.8 % (50-75); Platelet Count 190 X10^3/uL (150-400); Red Blood Cell Count 4.69 X10^6/uL (4.5-5.9); Red Cell Distribution Width 14.9 % (11.6-14.8); White Blood Cell Count 8.4 X10^3/uL (4.5-11.0)
[2024-06-13 10:41] LABS: BUN Creatinine Ratio 25.5 (6-22); Blood Urea Nitrogen 25 mg/dL (9-20); Calcium 9.1 mg/dL (8.4-10.2); Carbon Dioxide 26 mmol/L (22-32); Chloride 104 mmol/L (98-107); Cholesterol 167 mg/dL (140-199); Estimated Glomerular Filt Rate > 60 mL/min (>60); Glucose 101 mg/dL (80-110); HDL Cholesterol 46 mg/dL (40-60); HEMOLYSIS < 15 (0-50); LDL Cholesterol Calculated 94 mg/dL (<100); Potassium 4.2 mmol/L (3.4-5.1); Sodium 137 mmol/L (137-145); Triglycerides 137 mg/dL (35-150)
[2024-06-13 11:14] LABS: NT-proBNP (BNP-Adult 18+) < 20 pg/mL (<125)
== END ==
PROVIDERS: PCP Internal Medicine; Referring Provider Internal Medicine Cardiovascular Disease; Visit Provider Internal Medicine Cardiovascular Disease
DX: R06.02 Shortness of breath (principal); I10 Essential (primary) hypertension; E78.5 Hyperlipidemia, unspecified
CPT/HCPCS: 36415; 80048; 80061; 83880; 85025

== ENCOUNTER → 2024-09-12 12:10 | Outpatient (CLI) | payer OTHER, SELFPAY ==
[2024-09-12 14:03] LABS: Hemoglobin A1C% w Est Avg Glu 6.1 % (4.0-6.0)
[2024-09-12 14:04] LABS: Alanine Aminotransferase 37 IU/L (<50); Albumin Globulin Ratio 1.5 (1.0-2.8); Alkaline Phosphatase 94 U/L (38-126); Aspartate Aminotransferase 31 IU/L (17-59); BUN Creatinine Ratio 25.9 (6-22); Bilirubin Total 0.6 mg/dL (0.2-1.3); Blood Urea Nitrogen 22 mg/dL (9-20); Calcium 9.4 mg/dL (8.4-10.2); Carbon Dioxide 24 mmol/L (22-32); Chloride 104 mmol/L (98-107); Estimated Glomerular Filt Rate > 60 mL/min (>60); Globulin 2.6 g/dL (1.7-4.1); Glucose 96 mg/dL (80-110); HEMOLYSIS < 15 (0-50); Potassium 4.6 mmol/L (3.4-5.1); Sodium 137 mmol/L (137-145); Total Protein 6.6 g/dL (6.3-8.2)
[2024-09-12 14:30] LABS: Prostate Specific Antigen Scrn 0.519 ng/mL (0.1-4.0)
== END ==
PROVIDERS: PCP Internal Medicine; Referring Provider Internal Medicine; Visit Provider Internal Medicine
DX: I10 Essential (primary) hypertension (principal); E78.2 Mixed hyperlipidemia; R73.02 Impaired glucose tolerance (oral); Z12.5 Encounter for screening for malignant neoplasm of prostate
CPT/HCPCS: 36415; 80053; 83036; G0103

== ENCOUNTER → 2024-12-16 09:54 | Outpatient (CLI) | payer OTHER, SELFPAY ==
[2024-12-16 11:06] LABS: Cortisol Random 8.03 ug/dL
== END ==
PROVIDERS: PCP Internal Medicine; Referring Provider Surgery; Visit Provider Surgery
DX: R22.1 Localized swelling, mass and lump, neck (principal); I10 Essential (primary) hypertension
CPT/HCPCS: 36415; 82533